=== PATIENT | male | born 1980 | race American Indian/Alaskan Native ===

== ENCOUNTER 2017-02-28 01:52 | Emergency (ER) | payer SELFPAY ==
[2017-02-28 02:06] VITALS: BP 133/57; PULSE 84; RESP 18; TEMP 97.3; O2SAT 99
[2017-02-28] MEDS ORDERED: cefTRIAXone (Rocephin) 250 mg Inj IM STA (02:15)
--- NOTE | 2017-02-28 02:17 | ED PDOC ---
Arrival/HPI - General Chief Complaint: Male Genitourinary Time Seen by Provider: 02/28/17 01:59 Historian: Patient - History of Present Illness Narrative History of Present Illness (Text): Solomon Chen is a 37 year old male who presents to the emergency department requesting treatment for chlamydia. Patient states that he has been having some clear discharge for a few days. He states that his girlfriend was diagnosed with and treated for chlamydia recently. Patient denies any fever, vomiting, nausea, abdominal pain, or any other complaint at this time. Time/Duration: < week Symptom Course: Unchanged Activities at Onset: Light Context: Home Past Medical History - Provider Review Nursing Documentation Reviewed: Yes - Psychiatric Hx Substance Use: No Family/Social History - Physician Review Nursing Documentation Reviewed: Yes Family/Social History: No Known Family HX Smoking Status: y Hx Alcohol Use: No Hx Substance Use: No Allergies/Home Meds Allergies/Adverse Reactions: Allergies No Known Allergies Allergy (Verified 02/28/17 02:03) Home Medications: Home Meds Medication Instructions Recorded Confirmed No Known Home Med 02/28/17 02/28/17 Review of Systems - Physician Review All systems were reviewed & negative as marked: Yes - Review of Systems Constitutional: absent: Fevers, Night Sweats Eyes: absent: Vision Changes ENT: absent: Hearing Changes Respiratory: absent: SOB, Cough Cardiovascular: absent: Chest Pain Gastrointestinal: absent: Abdominal Pain Genitourinary Male: Other (clear discharge) Musculoskeletal: absent: Arthralgias Skin: absent: Rash, Pruritis Neurological: absent: Headache, Facial Droop Hemo/Lymphatic: absent: Adenopathy Physical Exam Vital Signs Reviewed: Yes Vital Signs Temp Pulse Resp BP Pulse Ox 02/28/17 02:03 97.3 F L 84 18 133/57 L 99 Appearance: Positive for: Well-Appearing, Non-Toxic, Comfortable Pain Distress: None Mental Status: Positive for: Alert and Oriented X 3 - Systems Exam Head: Present: Atraumatic Respiratory/Chest: No: Respiratory Distress, Accessory Muscle Use Cardiovascular: Present: Regular Rate and Rhythm Abdomen: No: Tenderness, Distention Neurological: Present: GCS=15 Psychiatric: Present: Alert, Oriented x 3 Medical Decision Making - Medication Orders Current Medication Orders: Discontinued Medications Azithromycin (Zithromax) 1,000 mg PO STAT STA PRN Reason: Protocol Stop: 02/28/17 02:13 Last Admin: 02/28/17 02:25 Dose: 1,000 mg Ceftriaxone Sodium (Rocephin) 250 mg IM STAT STA Stop: 02/28/17 02:16 Last Admin: 02/28/17 02:26 Dose: 250 mg IM Administration Charges Document 02/28/17 02:26 SC (Rec: 02/28/17 02:26 SC [id number]) Injection Site MAR Injection Site Left Gluteus Prabhu Charges for Administration # of IM Administrations 1 - Scribe Statement The provider has reviewed the documentation as recorded by the Scribe Milana Nobles Provider Scribe Attestation: All medical record entries made by the Scribe were at my direction and personally dictated by me. I have reviewed the chart and agree that the record accurately reflects my personal performance of the history, physical exam, medical decision making, and the department course for this patient. I have also personally directed, reviewed, and agree with the discharge instructions and disposition. Disposition/Present on Arrival - Present on Arrival Any Indicators Present on Arrival: No History of DVT/PE: No History of Uncontrolled Diabetes: No Urinary Catheter: No History of Decub. Ulcer: No History Surgical Site Infection Following: None - Disposition Have Diagnosis and Disposition been Completed?: Yes Diagnosis: Urethritis due to Chlamydia trachomatis Disposition: HOME/ ROUTINE Disposition Time: 02:15 Condition: STABLE Discharge Instructions (ExitCare): Chlamydia (ED) Additional Instructions: Please follow up with your doctor. Return to the ER for any worsening symptoms, fever, or for any other concerns. Referrals: [facility] [place] [facility] [place] - Follow up with primary Forms: [employer] (Serbian)
[2017-02-28] MEDS ORDERED: Lidocaine 1% Inj (20ml) ONE (02:20)
== END 2017-02-28 02:49 | disposition home or self-care (01) ==
LOC: ED 01:52
DX: A56.01 Chlamydial cystitis and urethritis (principal)
CPT/HCPCS: 96372; 99283; J0696

== ENCOUNTER 2018-06-03 23:30 | Emergency (ER) | payer SELFPAY ==
[2018-06-04 00:30] VITALS: RESP 18; O2SAT 98
[2018-06-04] MEDS ORDERED: cefTRIAXone (Rocephin) 250 mg Inj IM STA (00:38)
--- NOTE | 2018-06-04 00:40 | ED PDOC ---
Arrival/HPI - General Chief Complaint: Male Genitourinary Time Seen by Provider: 06/04/18 00:28 Historian: Patient - History of Present Illness Narrative History of Present Illness (Text): 06/04/18 00:36 Solomon Chen is a 38 year old male who presents to the emergency department requesting STD prophylaxis. Patient states he was advised by his girlfriend's doctor to get treated for chlamydia, which is girlfriend had tested positive for. Patient denies any penile discharge, penile pain, testicular pain, abdominal ain, nausea, vomiting, flank pain, or any other complaints. Symptom Onset: Gradual Symptom Course: Unchanged Activities at Onset: Light Context: Home Past Medical History - Provider Review Nursing Documentation Reviewed: Yes - Psychiatric Hx Substance Use: Yes - Anesthesia Hx Anesthesia: No Family/Social History - Physician Review Nursing Documentation Reviewed: Yes Family/Social History: Unknown Family HX Smoking Status: Never Smoked Hx Alcohol Use: Yes Frequency of alcohol use: Socially Hx Substance Use: Yes Substance used: recreational marijuana Allergies/Home Meds Allergies/Adverse Reactions: Allergies No Known Allergies Allergy (Verified 06/04/18 00:27) Home Medications: Home Meds Medication Instructions Recorded Confirmed No Known Home Med 02/28/17 06/04/18 Review of Systems - Physician Review All systems were reviewed & negative as marked: Yes - Review of Systems Constitutional: Normal. absent: Fevers Eyes: Normal ENT: Normal Respiratory: Normal. absent: SOB, Cough Cardiovascular: Normal. absent: Chest Pain Gastrointestinal: Normal. absent: Abdominal Pain, Diarrhea, Nausea, Vomiting Genitourinary Male: Normal. absent: Dysuria, Frequency, Hematuria, Urinary Output Changes Musculoskeletal: Normal. absent: Back Pain, Neck Pain Skin: Normal. absent: Rash Neurological: Normal. absent: Headache, Dizziness Endocrine: Normal Hemo/Lymphatic: Normal Psychiatric: Normal Physical Exam Vital Signs Reviewed: Yes Vital Signs Temp Pulse Resp BP Pulse Ox 06/04/18 00:27 98.1 F 77 18 120/78 98 Temperature: Afebrile Blood Pressure: Normal Pulse: Regular Respiratory Rate: Normal Appearance: Positive for: Well-Appearing, Non-Toxic, Comfortable Pain Distress: None Mental Status: Positive for: Alert and Oriented X 3 - Systems Exam Head: Present: Atraumatic, Normocephalic Pupils: Present: PERRL Extroacular Muscles: Present: EOMI Conjunctiva: Present: Normal Mouth: Present: Moist Mucous Membranes Neck: Present: Normal Range of Motion Respiratory/Chest: Present: Clear to Auscultation, Good Air Exchange. No: Respiratory Distress, Accessory Muscle Use Cardiovascular: Present: Regular Rate and Rhythm, Normal S1, S2. No: Murmurs Abdomen: No: Tenderness, Distention, Peritoneal Signs Back: Present: Normal Inspection Upper Extremity: Present: Normal Inspection. No: Cyanosis, Edema Lower Extremity: Present: Normal Inspection. No: Edema Neurological: Present: GCS=15, CN II-XII Intact, Speech Normal Skin: Present: Warm, Dry, Normal Color. No: Rashes Psychiatric: Present: Alert, Oriented x 3, Normal Insight, Normal Concentration Medical Decision Making ED Course and Treatment: 06/04/18 00:36 Impression: 38 year old male presents for STD prophylaxis. Plan: -- Chlamydia/GC RNA -- Rocephin -- Zithromax -- Reassess and disposition Progress Notes: - Scribe Statement The provider has reviewed the documentation as recorded by the David Underwood Provider Scribe Attestation: All medical record entries made by the Scribe were at my direction and personally dictated by me. I have reviewed the chart and agree that the record accurately reflects my personal performance of the history, physical exam, medical decision making, and the department course for this patient. I have also personally directed, reviewed, and agree with the discharge instructions and disposition. Disposition/Present on Arrival - Present on Arrival Any Indicators Present on Arrival: No History of DVT/PE: No History of Uncontrolled Diabetes: No Urinary Catheter: No History of Decub. Ulcer: No History Surgical Site Infection Following: None - Disposition Have Diagnosis and Disposition been Completed?: Yes Diagnosis: STD (sexually transmitted disease) Disposition: HOME/ ROUTINE Disposition Time: 01:15 Condition: GOOD Discharge Instructions (ExitCare): Sexually-Transmitted Diseases Forms: [employer] (Icelandic)
[2018-06-04 01:37] VITALS: BP 118/78; PULSE 72; TEMP 98
== END 2018-06-04 01:15 | disposition home or self-care (01) ==
LOC: ED 23:30
DX: A64 Unspecified sexually transmitted disease (principal)
CPT/HCPCS: 87491; 87591; 96372; 99283; J0696